=== PATIENT | male | born 1955 | race Caucasian/White ===

== ENCOUNTER 2020-04-13 10:14 | Inpatient (IN) | payer OTHER ==
[~2020-04-13] VITALS: Ht 185.4 cm; Wt 79.4 kg
[~2020-04-13 10:14] MED LIST: Acetaminophen 500mg (ES) tab ORAL PRN; DiphenhydrAMINE 50mg/ml Inj IV PRN; Hydrocortisone 100mg Inj IV PRN
--- NOTE | 2020-04-13 14:18 | History & Physical ---
History and Physical History & Physicial Full H&P dictated 64 yo with well-controlled HIV infection admitted electively for participation in [id number]. He feels well today and has no new complaints. PE: wnwd male NAD T 97.5 P 77 BP 125/71 R 16 HEENT: nc/at Neck: supple Lungs: clear Cor: reg no murmur Abd: soft, NT, no HSM Ext: no c/c/e Neuro: non-focal A: 1) HIV, well controlled on Triumeq 2) anxiety/depression 3) hyperlipidemia 4) hypogonadism 5) diverticulosis 6) BPH 7) anemia 8) participation in clinical trial. P: 1) manage per protocol. Pt has freely given his informed consent, and we will anticipate IP dosing tomorrow morning. All questions offered were addressed. Kj Zaidi MD Apr 13, 2020 14:18
--- NOTE | 2020-04-13 14:45 | History and Physical Report ---
DATE OF ADMISSION: 04/13/2020 CHIEF COMPLAINT: The patient is electively admitted for participation in [employer] clinical trial, [id number]. HISTORY OF PRESENT ILLNESS: The patient is a 64-year-old man followed by Dr. Kj Leija in my office for HIV infection. He was diagnosed in the year 1999. His radha was unknown, but was reportedly not low. The patient has a significant history of depression, anxiety, and panic attacks for which he sees psychiatrist, Dr. Tim Bravo. The patient is now electively admitted for participation in the above related clinical trial. PAST MEDICAL HISTORY: In addition to his HIV infection and his psychiatric issues, the patient has a history of benign prostatic hyperplasia as well as dysuria. The patient also has a history of diverticulosis and colon polyps. There is also history of hyperlipidemia. ALLERGIES: Cialis causes fatigue. Viagra causes a headache. MEDICATIONS: As an outpatient included Ativan 1 mg at bedtime twice a day as needed, Vraylar 1.5 mg capsules daily, Triumeq 1 tablet daily, Pristiq 100 mg daily, Dutasteride-tamsulosin 0.5/0.4 mg capsules one a day, iron sulfate 325 mg twice a day, Myrbetriq 50 mg once a day, and aripiprazole, dose unknown for anxiety. FAMILY HISTORY: Noncontributory. SOCIAL HISTORY: The patient does not smoke or use intravenous drugs. There is no history of recent travel outside of [place]. REVIEW OF SYSTEMS: Denies fever or sweats. Denies cough, shortness of breath, or dyspnea on exertion. Denies nausea, vomiting, or diarrhea. Denies dysuria. The patient has frequent urination at night, however. The patient denies headache or altered mental status. PHYSICAL EXAMINATION: GENERAL: Revealed a well-nourished and well-developed male, in no acute distress. He was alert and oriented x4 and cooperative. VITAL SIGNS: Pending. HEENT: Normocephalic and atraumatic. Pupils are equal, round, and reactive. Oropharynx was without thrush or leukoplakia. NECK: Supple. No cervical or axillary adenopathy. LUNGS: Clear to auscultation. HEART: Regular rhythm. ABDOMEN: Soft and nontender. No hepatosplenomegaly. EXTREMITIES: Without cyanosis, clubbing, or edema. NEUROLOGIC: Grossly nonfocal for motor or sensory defects. IMPRESSION: 1. HIV infection, well controlled on Triumeq. 2. Anxiety and depression. 3. Diverticulosis. 4. Hyperlipidemia. 5. Nocturia. DISCUSSION: The patient is a pleasant 64-year-old man who is now electively admitted for participation in a clinical trial. He will be dosed with investigational product tomorrow morning and observed over the next three nights. The patient was given an opportunity to verbalize questions and at this time he wishes to proceed with his participation. PLAN: Manage per protocol. Kj Zaidi M.D. DR: KIMBERLEY JOB#: [id number] CC: Kj Zaidi M.D.; [address] [place] [address], [address]; [place] [address]; Fax#: [phone] [facility]
[2020-04-13 16:00] VITALS: BP 129/78
[2020-04-13 16:07] LABS: BASOPHILS % (AUTO) 0.6 % (0.0-2.0); EOSINOPHILS % (AUTO) 2.1 % (0.0-3.0); HEMATOCRIT 38.4 % (42.0-52.0); HEMOGLOBIN 13.1 G/DL (14.2-18.0); LYMPHOCYTES % (AUTO) 23.7 % (20.0-45.0); MEAN CORPUSCULAR VOLUME 101 FL (80-99); MONOCYTES % (AUTO) 6.5 % (1.0-10.0); NEUTROPHILS % (AUTO) 67.2 % (45.0-75.0); PLATELET COUNT 181 K/UL (150-450); RED CELL DISTRIBUTION WIDTH 11.6 % (11.6-14.8); WHITE BLOOD COUNT 8.9 K/UL (4.8-10.8)
[2020-04-13 20:00] VITALS: BP 130/82
[2020-04-13] MEDS: MYRBETRIQ 50 MG ORAL SCH (20:36)
[2020-04-13] MEDS: FERROUS SULFATE 325 MG ORAL SCH (20:36)
[2020-04-13] MEDS: TAMSULOSIN ORAL SCH (20:37)
[2020-04-13] MEDS: DUTASTERIDE ORAL SCH (20:37)
[2020-04-13] MEDS: TRIUMEQ ORAL SCH (20:37)
[2020-04-13] MEDS: VRAYLAR 1.5 MG ORAL SCH (20:39)
[2020-04-13] MEDS ORDERED: LORazepam 1mg tab ORAL SCH ×2 (21:00)
[2020-04-14 08:00] VITALS: BP 135/85
[2020-04-14] MEDS ORDERED: [UNRECOGNIZED DRUG - REMARK] ORAL SCH (08:00)
[2020-04-14] MEDS: LORazepam 1mg tab ORAL SCH ×2 (11:24→21:07)
[2020-04-14] MEDS: FERROUS SULFATE 325 MG ORAL SCH ×2 (11:24→21:06)
[2020-04-14 12:00] VITALS: BP 136/86
[2020-04-14] MEDS: PRISTIQ 100 MG ORAL SCH (14:13)
--- NOTE | 2020-04-14 14:56 | General Progress Note ---
Progress Note Progress Note S: pt doing well, no new complaints. Tolerated IP well (PO) this AM O: VSS Afebrile HEENT: nc/at Neck: supple Lungs: clear Cor: reg Abd: soft, NT Ext: no c/c/e Labs Test 04/13/20 15:00 White Blood Count 8.9 K/UL (4.8-10.8) Red Blood Count 3.80 M/UL (4.70-6.10) Hemoglobin 13.1 G/DL (14.2-18.0) Hematocrit 38.4 % (42.0-52.0) Mean Corpuscular Volume 101 FL (80-99) Mean Corpuscular Hemoglobin 34.5 PG (27.0-31.0) Mean Corpuscular Hemoglobin Concent 34.2 G/DL (32.0-36.0) Red Cell Distribution Width 11.6 % (11.6-14.8) Platelet Count 181 K/UL (150-450) Mean Platelet Volume 7.3 FL (6.5-10.1) Neutrophils (%) (Auto) 67.2 % (45.0-75.0) Lymphocytes (%) (Auto) 23.7 % (20.0-45.0) Monocytes (%) (Auto) 6.5 % (1.0-10.0) Eosinophils (%) (Auto) 2.1 % (0.0-3.0) Basophils (%) (Auto) 0.6 % (0.0-2.0) A: 1) participation in clinical trial. Patient wishes to continue. 2) HIV infection, well controlled. P: 1) continue to manage per protocol 2) anticipate DC in AM 115 if clinically stable Kj Zaidi MD Apr 14, 2020 14:56
[2020-04-14 16:00] VITALS: BP 117/75
[2020-04-14] MEDS: TAMSULOSIN ORAL SCH (21:05)
[2020-04-14] MEDS: TRIUMEQ ORAL SCH (21:05)
[2020-04-14] MEDS: DUTASTERIDE ORAL SCH (21:05)
[2020-04-14] MEDS: MYRBETRIQ 50 MG ORAL SCH (21:06)
[2020-04-14] MEDS: VRAYLAR 1.5 MG ORAL SCH (21:06)
[2020-04-14] MEDS: Zolpidem 5mg tab ORAL PRN (22:07)
[2020-04-15 02:45] VITALS: BP 127/81
[2020-04-15 08:00] VITALS: BP 111/86
--- NOTE | 2020-04-15 08:00 | General Progress Note ---
Progress Note Progress Note S: pt feels well, offers no new complaints this morning O: VSS, Afebrile HEENT: nc/at Neck: supple Lungs: clear to a/ Cor: reg no murmur Abd: soft, NT Ext: no c/c/e Labs Test 04/13/20 15:00 White Blood Count 8.9 K/UL (4.8-10.8) Red Blood Count 3.80 M/UL (4.70-6.10) Hemoglobin 13.1 G/DL (14.2-18.0) Hematocrit 38.4 % (42.0-52.0) Mean Corpuscular Volume 101 FL (80-99) Mean Corpuscular Hemoglobin 34.5 PG (27.0-31.0) Mean Corpuscular Hemoglobin Concent 34.2 G/DL (32.0-36.0) Red Cell Distribution Width 11.6 % (11.6-14.8) Platelet Count 181 K/UL (150-450) Mean Platelet Volume 7.3 FL (6.5-10.1) Neutrophils (%) (Auto) 67.2 % (45.0-75.0) Lymphocytes (%) (Auto) 23.7 % (20.0-45.0) Monocytes (%) (Auto) 6.5 % (1.0-10.0) Eosinophils (%) (Auto) 2.1 % (0.0-3.0) Basophils (%) (Auto) 0.6 % (0.0-2.0) A: 1) participation in clinical trial. Pt tolerated IP yesterday w/o AEs observed 2) HIV infection, well-controlled P: 1) continue management per protocol 2) anticipate d/c in AM tomorrow if stable Kj Zaidi MD Apr 15, 2020 08:00
[2020-04-15 09:16] LABS: BASOPHILS % (AUTO) 0.9 % (0.0-2.0); EOSINOPHILS % (AUTO) 1.9 % (0.0-3.0); HEMATOCRIT 41.1 % (42.0-52.0); HEMOGLOBIN 13.8 G/DL (14.2-18.0); LYMPHOCYTES % (AUTO) 26.7 % (20.0-45.0); MEAN CORPUSCULAR VOLUME 102 FL (80-99); MONOCYTES % (AUTO) 8.5 % (1.0-10.0); NEUTROPHILS % (AUTO) 62.1 % (45.0-75.0); PLATELET COUNT 197 K/UL (150-450); RED BLOOD COUNT 4.04 M/UL (4.70-6.10); RED CELL DISTRIBUTION WIDTH 12.4 % (11.6-14.8); WHITE BLOOD COUNT 6.4 K/UL (4.8-10.8)
[2020-04-15] MEDS: FERROUS SULFATE 325 MG ORAL SCH ×2 (09:24→20:34)
[2020-04-15] MEDS: LORazepam 1mg tab ORAL SCH ×2 (09:24→20:41)
[2020-04-15 12:00] VITALS: BP 123/82
[2020-04-15] MEDS: PRISTIQ 100 MG ORAL SCH (13:58)
[2020-04-15 16:00] VITALS: BP 125/81
[2020-04-15] MEDS: MYRBETRIQ 50 MG ORAL SCH (20:33)
[2020-04-15] MEDS: DUTASTERIDE ORAL SCH (20:34)
[2020-04-15] MEDS: VRAYLAR 1.5 MG ORAL SCH (20:34)
[2020-04-15] MEDS: TRIUMEQ ORAL SCH (20:34)
[2020-04-15] MEDS: TAMSULOSIN ORAL SCH (20:34)
[2020-04-15] MEDS ORDERED: ATIVAN1 MG ORAL (22:08)
[2020-04-15] MEDS ORDERED: Patient's Own Med ORAL ×2 (22:08)
[2020-04-16] MEDS: Zolpidem 5mg tab ORAL PRN (00:23)
[2020-04-16 04:00] VITALS: BP 112/73
[2020-04-16 09:28] LABS: BASOPHILS % (AUTO) 0.9 % (0.0-2.0); EOSINOPHILS % (AUTO) 1.8 % (0.0-3.0); HEMATOCRIT 39.3 % (42.0-52.0); HEMOGLOBIN 13.3 G/DL (14.2-18.0); MEAN CORPUSCULAR VOLUME 104 FL (80-99); MONOCYTES % (AUTO) 9.5 % (1.0-10.0); NEUTROPHILS % (AUTO) 58.8 % (45.0-75.0); PLATELET COUNT 196 K/UL (150-450); RED BLOOD COUNT 3.79 M/UL (4.70-6.10); RED CELL DISTRIBUTION WIDTH 12.3 % (11.6-14.8); WHITE BLOOD COUNT 6.6 K/UL (4.8-10.8)
--- NOTE | 2020-04-17 02:00 | Discharge Summary ---
DATE OF ADMISSION: 04/13/2020 DATE OF DISCHARGE: 04/16/2020 DISCHARGE DIAGNOSES: 1. Participation in [employer] clinical trial [id number]. 2. HIV infection, well controlled on Triumeq. 3. Anxiety and depression. 4. Diverticulosis. 5. Hyperlipidemia 6. Nocturia. HISTORY OF PRESENT ILLNESS AND HOSPITAL COURSE: The patient is a 64-year-old man who is electively admitted 3 days ago for participation in the above clinical trial. He received investigational products on the second hospital day and tolerated it well without any observed adverse events. The patient was discharged to home with follow up in the office in the next week. DISCHARGE MEDICATIONS: Triumeq one tablet daily, Pristiq 100 mg a day, Vraylar 1.5 mg a day, Dutasteride-tamsulosin 0.5/0.4 mg capsules one a day, ferrous sulfate 325 mg twice a day, Myrbetriq 50 mg once a day, and aripiprazole as needed. DISCHARGE CONDITION: Good. Kj Zaidi M.D. DR: Ness JOB#: [id number] CC:
== END 2020-04-16 08:30 | disposition home or self-care (01) | DRG 951 ==
LOC: 3E 14:49
DX: Z00.6 Encounter for examination for normal comparison and control in clinical research program (principal); B20 Human immunodeficiency virus [HIV] disease; F41.8 Other specified anxiety disorders; K57.90 Diverticulosis of intestine, part unspecified, without perforation or abscess without bleeding; N40.0 Benign prostatic hyperplasia without lower urinary tract symptoms; E78.5 Hyperlipidemia, unspecified; E29.1 Testicular hypofunction; D64.9 Anemia, unspecified; R35.1 Nocturia
CPT/HCPCS: 36415; 85025

== ENCOUNTER 2020-04-27 11:30 | Inpatient (IN) | payer OTHER ==
[~2020-04-27] VITALS: Ht 185.4 cm; Wt 82.1 kg
[~2020-04-27 11:30] MED LIST changes: +ATIVAN1 MG ORAL; +Patient's Own Med ORAL
--- NOTE | 2020-04-27 15:27 | History & Physical ---
History and Physical History & Physicial Full H&P dictated #[id number]. 64 yo male electively admitted for continued participation in [id number]. No interval problems since prior hospitalization, and he feels well. Will manage per protocol. Kj Zaidi MD Apr 27, 2020 15:27
--- NOTE | 2020-04-27 15:30 | History and Physical Report ---
DATE OF ADMISSION: 04/27/2020 CHIEF COMPLAINT: The patient is electively admitted to continue participation in [employer] clinical trial [id number]. HISTORY OF PRESENT ILLNESS: Patient is a 64-year-old man, followed by Dr. Kj Leija in my office for HIV infection. He was diagnosed approximately 20 years ago. He had an unknown radha of T-cells, but reportedly was not low. The patient has numerous other medical issues which, however have been stable. He is electively admitted now for continued participation in this clinical trial. PAST MEDICAL HISTORY: The patient has a long history of depression, anxiety, and panic attacks for which he sees his psychiatrist, Dr. Tim Bravo. The patient has a history of benign prostatic hypertrophy and dysuria. He has also history of diverticulosis, colon polyps, and hyperlipidemia. ALLERGIES: Cialis causes fatigue. Viagra causes headache. MEDICATIONS: As an outpatient include Ativan 1 mg in the morning and 2 mg at night, Vraylar 1.5 mg daily, Triumeq 1 tablet daily, Pristiq 100 mg daily, dutasteride, tamsulosin 0.5/0.4 mg capsules once a day, iron sulfate 325 mg twice a day, Myrbetriq 50 mg once a day, and aripiprazole unknown dose for anxiety. FAMILY HISTORY: Noncontributory. SOCIAL HISTORY: The patient is nonsmoker. He uses intravenous drugs. He has no history of recent travel outside [place]. REVIEW OF SYSTEMS: The patient denies fevers, chills, cough, shortness of breath. Denies nausea or vomiting. No hematuria. No headache. No altered mental status. PHYSICAL EXAMINATION: GENERAL: Revealed a well-nourished, well-developed male, in no acute distress. He is alert and oriented x4 and cooperative. VITAL SIGNS: Pending. HEENT: Normocephalic, atraumatic. PERRLA. Oropharynx had no thrush. NECK: Supple. LUNGS: Clear to auscultation. HEART: Regular rhythm. ABDOMEN: Soft, nontender. EXTREMITIES: Without cyanosis, clubbing, or edema. NEUROLOGIC: Grossly nonfocal for motor or sensory defects. IMPRESSION: 1. HIV infection, well controlled on Triumeq. 2. Anxiety, depression, panic disorder. 3. Hyperlipidemia. 4. Diverticulosis. 5. Nocturia. DISCUSSION: Patient is a pleasant 64-year-old man who is now admitted for continued participation in his clinical trial. We will plan on dosing investigational products tomorrow morning and observe him over the next 2 nights. The patient has been given an opportunity to verbalize questions. At this time, I am satisfied that he has given informed consent without any constraint and he will continue on participation of study. PLAN: Manage per protocol. Kj Zaidi M.D. DR: ENEIDA JOB#: [id number] CC: Kj Zaidi M.D.; [address] [place] [address], [address]; [place] [address]; Fax#: [phone] [facility]
[2020-04-27 15:59] LABS: BASOPHILS % (AUTO) 0.7 % (0.0-2.0); EOSINOPHILS % (AUTO) 2.3 % (0.0-3.0); HEMATOCRIT 38.1 % (42.0-52.0); HEMOGLOBIN 13.2 G/DL (14.2-18.0); LYMPHOCYTES % (AUTO) 28.2 % (20.0-45.0); MEAN CORPUSCULAR VOLUME 101 FL (80-99); MONOCYTES % (AUTO) 6.5 % (1.0-10.0); NEUTROPHILS % (AUTO) 62.3 % (45.0-75.0); PLATELET COUNT 179 K/UL (150-450); RED BLOOD COUNT 3.76 M/UL (4.70-6.10); RED CELL DISTRIBUTION WIDTH 12.2 % (11.6-14.8)
[2020-04-27 16:00] VITALS: BP 122/79
[2020-04-27 20:00] VITALS: BP 117/74
[2020-04-27] MEDS: TAMSULOSIN ORAL SCH (20:16)
[2020-04-27] MEDS: DUTASTERIDE ORAL SCH (20:16)
[2020-04-27] MEDS: VRAYLAR 1.5 MG ORAL SCH (20:17)
[2020-04-27] MEDS: FERROUS SULFATE 325 MG ORAL SCH (20:17)
[2020-04-27] MEDS: LORAZEPAM 1 MG ORAL SCH (20:17)
[2020-04-27] MEDS ORDERED: Zolpidem 5mg tab ORAL PRN (23:00)
[2020-04-28] MEDS ORDERED: [UNRECOGNIZED DRUG - OTHER] IVPB SCH (07:00)
[2020-04-28] MEDS ORDERED: [UNRECOGNIZED DRUG - REMARK] ORAL SCH (08:00)
[2020-04-28] MEDS: FERROUS SULFATE 325 MG ORAL SCH ×2 (12:25→20:12)
[2020-04-28] MEDS: DESVENLAFAXINE 100 MG ORAL SCH (12:25)
[2020-04-28] MEDS: LORAZEPAM 1 MG ORAL SCH ×2 (12:25→20:12)
--- NOTE | 2020-04-28 13:21 | General Progress Note ---
Progress Note Progress Note S: pt doing well, no new complaints. Tolerated IP administration this morning w/o any AEs noted O: VSS, afebrile HEENT: nc/at Neck: supple Lungs: clear Cor: reg Abd: soft, NT Ext: no c/c/e Skin: no rashes Neuro: non-focal Labs Test 04/27/20 15:00 White Blood Count 9.0 K/UL (4.8-10.8) Red Blood Count 3.76 M/UL (4.70-6.10) Hemoglobin 13.2 G/DL (14.2-18.0) Hematocrit 38.1 % (42.0-52.0) Mean Corpuscular Volume 101 FL (80-99) Mean Corpuscular Hemoglobin 35.0 PG (27.0-31.0) Mean Corpuscular Hemoglobin Concent 34.5 G/DL (32.0-36.0) Red Cell Distribution Width 12.2 % (11.6-14.8) Platelet Count 179 K/UL (150-450) Mean Platelet Volume 7.7 FL (6.5-10.1) Neutrophils (%) (Auto) 62.3 % (45.0-75.0) Lymphocytes (%) (Auto) 28.2 % (20.0-45.0) Monocytes (%) (Auto) 6.5 % (1.0-10.0) Eosinophils (%) (Auto) 2.3 % (0.0-3.0) Basophils (%) (Auto) 0.7 % (0.0-2.0) A: 1) Participation in clinical trial - pt wishes to continue 2) HIV well controlled 3) depressive disorder, stable P: 1) continue to manage per protocol; anticipate d/c 04/30 if stable Kj Zaidi MD Apr 28, 2020 13:20
[2020-04-28] MEDS: TAMSULOSIN ORAL SCH (20:12)
[2020-04-28] MEDS: DUTASTERIDE ORAL SCH (20:12)
[2020-04-28] MEDS: VRAYLAR 1.5 MG ORAL SCH (20:12)
[2020-04-29 02:00] VITALS: BP 112/68
--- NOTE | 2020-04-29 08:03 | General Progress Note ---
Progress Note Progress Note S: no overnight events, pt feels well and has no complaints this AM O: VSS Afebrile HEENT: nc/at Lungs: clear a/ Cor: reg no murmurs Abd: soft, NT Ext: no c/c/e Skin: no rashes Neuro: non-focal Labs Test 04/27/20 15:00 White Blood Count 9.0 K/UL (4.8-10.8) Red Blood Count 3.76 M/UL (4.70-6.10) Hemoglobin 13.2 G/DL (14.2-18.0) Hematocrit 38.1 % (42.0-52.0) Mean Corpuscular Volume 101 FL (80-99) Mean Corpuscular Hemoglobin 35.0 PG (27.0-31.0) Mean Corpuscular Hemoglobin Concent 34.5 G/DL (32.0-36.0) Red Cell Distribution Width 12.2 % (11.6-14.8) Platelet Count 179 K/UL (150-450) Mean Platelet Volume 7.7 FL (6.5-10.1) Neutrophils (%) (Auto) 62.3 % (45.0-75.0) Lymphocytes (%) (Auto) 28.2 % (20.0-45.0) Monocytes (%) (Auto) 6.5 % (1.0-10.0) Eosinophils (%) (Auto) 2.3 % (0.0-3.0) Basophils (%) (Auto) 0.7 % (0.0-2.0) A: 1) participation in [id number] clinical trial 2) HIV infection, well controlled on ART 3) stable comorbidities P: 1) continue to manage per protocol 2) anticipate discharge in AM if stable overnight Kj Zaidi MD Apr 29, 2020 08:03
[2020-04-29 08:28] LABS: BASOPHILS % (AUTO) 0.9 % (0.0-2.0); EOSINOPHILS % (AUTO) 2.3 % (0.0-3.0); HEMATOCRIT 39.6 % (42.0-52.0); HEMOGLOBIN 13.7 G/DL (14.2-18.0); LYMPHOCYTES % (AUTO) 20.3 % (20.0-45.0); MEAN CORPUSCULAR VOLUME 103 FL (80-99); MONOCYTES % (AUTO) 9.5 % (1.0-10.0); PLATELET COUNT 154 K/UL (150-450); RED BLOOD COUNT 3.86 M/UL (4.70-6.10); RED CELL DISTRIBUTION WIDTH 12.5 % (11.6-14.8); WHITE BLOOD COUNT 4.8 K/UL (4.8-10.8)
[2020-04-29] MEDS: FERROUS SULFATE 325 MG ORAL SCH ×2 (09:02→21:00)
[2020-04-29] MEDS: DESVENLAFAXINE 100 MG ORAL SCH (09:03)
[2020-04-29] MEDS: LORAZEPAM 1 MG ORAL SCH ×2 (09:03→21:46)
[2020-04-29 12:43] LABS: CALCIUM 8.9 MG/DL (8.5-10.1); CREATININE 1.4 MG/DL (0.55-1.30); POTASSIUM 4.5 MMOL/L (3.5-5.1)
[2020-04-29] MEDS: VRAYLAR 1.5 MG ORAL SCH (21:46)
[2020-04-29] MEDS: DUTASTERIDE ORAL SCH (21:47)
[2020-04-29] MEDS: TAMSULOSIN ORAL SCH (21:47)
[2020-04-30 08:24] LABS: EOSINOPHILS % (AUTO) 1.9 % (0.0-3.0); HEMATOCRIT 40.9 % (42.0-52.0); HEMOGLOBIN 13.8 G/DL (14.2-18.0); LYMPHOCYTES % (AUTO) 35.6 % (20.0-45.0); MEAN CORPUSCULAR VOLUME 102 FL (80-99); MONOCYTES % (AUTO) 12.1 % (1.0-10.0); NEUTROPHILS % (AUTO) 49.4 % (45.0-75.0); PLATELET COUNT 166 K/UL (150-450); RED CELL DISTRIBUTION WIDTH 12.1 % (11.6-14.8); WHITE BLOOD COUNT 4.9 K/UL (4.8-10.8)
--- NOTE | 2020-05-01 01:45 | Discharge Summary ---
DATE OF ADMISSION: 04/27/2020 DATE OF DISCHARGE: 04/30/2020 DISCHARGE DIAGNOSES: 1. Elective participation in [employer] clinical trial [id number]. 2. HIV infection, well controlled on Triumeq. 3. Depression and anxiety. 4. Dysuria. HISTORY OF PRESENT ILLNESS AND HOSPITAL COURSE: The patient is a 64-year-old man participating in the above clinical trial. He received investigational products on the second hospital day and tolerated them well without any evident adverse effects noted. The patient is discharged in stable condition to home. He will be followed up in the office on Monday. STATUS AT DISCHARGE: Stable. MEDICATIONS: Ativan 1 mg in the morning and 2 mg at night, Vraylar 1.5 mg daily, Triumeq 1 tablet daily, Pristiq 100 mg daily, dutasteride-tamsulosin 0.5/0.4 mg capsules once a day, iron sulfate 325 mg twice a day, Myrbetriq 50 mg once a day, and aripiprazole for anxiety. Kj Zaidi M.D. DR: ESTUARDO JOB#: [id number] CC: Kj Zaidi M.D.; [address] [place] [address], [address]; [place] [address]; Fax#: [phone]
== END 2020-04-30 08:15 | disposition home or self-care (01) | DRG 951 ==
LOC: 3E 15:41
DX: Z00.6 Encounter for examination for normal comparison and control in clinical research program (principal); B20 Human immunodeficiency virus [HIV] disease; K57.90 Diverticulosis of intestine, part unspecified, without perforation or abscess without bleeding; F32.9 Major depressive disorder, single episode, unspecified; F41.9 Anxiety disorder, unspecified; R30.0 Dysuria
CPT/HCPCS: 36415; 80048; 85025

== ENCOUNTER 2020-05-11 13:57 | Inpatient (IN) | payer OTHER ==
[~2020-05-11] VITALS: Ht 185.4 cm; Wt 80.3 kg
[~2020-05-11 13:57] MED LIST changes: +Zolpidem 5mg tab ORAL PRN
[2020-05-11 14:50] LABS: BASOPHILS % (AUTO) 0.6 % (0.0-2.0); HEMATOCRIT 37.8 % (42.0-52.0); HEMOGLOBIN 13.1 G/DL (14.2-18.0); LYMPHOCYTES % (AUTO) 23.1 % (20.0-45.0); MEAN CORPUSCULAR VOLUME 100 FL (80-99); MONOCYTES % (AUTO) 7.1 % (1.0-10.0); NEUTROPHILS % (AUTO) 67.2 % (45.0-75.0); PLATELET COUNT 187 K/UL (150-450); RED BLOOD COUNT 3.77 M/UL (4.70-6.10); WHITE BLOOD COUNT 10.6 K/UL (4.8-10.8)
[2020-05-11 15:00] VITALS: BP 117/73
--- NOTE | 2020-05-11 15:14 | History & Physical ---
History and Physical History & Physicial Full H&P dictated #[id number]. 64 yo male electively admitted for continued participation in [id number]. No interval problems since prior hospitalization, and he feels well. Will manage per protocol. Kj Zaidi MD May 11, 2020 15:14
[2020-05-11 16:00] VITALS: BP 120/77
--- NOTE | 2020-05-11 16:14 | History and Physical Report ---
DATE OF ADMISSION: 05/11/2020 CHIEF COMPLAINT: The patient is electively admitted for continued participation in [employer] clinical trial [id number]. HISTORY OF PRESENT ILLNESS: Patient is a 64-year-old man, followed in our office for HIV infection, which has been well controlled. PAST MEDICAL HISTORY: The patient has a history of benign prostatic hypertrophy and dysuria as well as diverticulosis, colon polyps, and hyperlipidemia. He also has a history of depression and anxiety for which he sees a psychiatrist, Dr. Bravo. The patient has done well during the current study without any new complaints above. ALLERGIES: Cialis causes fatigue and Viagra causes headache. OUTPATIENT MEDICATIONS: Ativan 1 mg in the morning and 2 mg at night, Vraylar 1.5 mg daily, Triumeq 1 tablet daily, Pristiq 100 mg daily, dutasteride/tamsulosin 0.5/0.4 mg once a day, iron sulfate 325 mg twice a day, Myrbetriq 50 mg a day, and aripiprazole unknown dose for anxiety. FAMILY HISTORY: Noncontributory. SOCIAL HISTORY: Patient is a nonsmoker. He does not use intravenous drugs. He has no history of recent travel outside of [place]. REVIEW OF SYSTEMS: The patient denies fevers, chills, cough, shortness of breath, dyspnea on exertion, or chest pain. He denies nausea, vomiting, or diarrhea. There is no change in his chronic dysuria. He denies tingling, paresthesias, headaches, or altered mental status. He has had some mild itching since last week. PHYSICAL EXAMINATION: GENERAL: Revealed a well-nourished, well-developed male, in no acute distress. He is alert, oriented x4, and cooperative. VITAL SIGNS: Pending. HEENT: Normocephalic, atraumatic. Pupils equal, round, reactive. Oropharynx was without thrush or leukoplakia. NECK: Supple. LUNGS: Clear to auscultation. HEART: Regular rhythm without murmurs or gallops. ABDOMEN: Soft, nontender. No hepatosplenomegaly. EXTREMITIES: Without cyanosis, clubbing, or edema. NEUROLOGIC: Grossly nonfocal. SKIN: No rashes. IMPRESSION: 1. Participation in the above clinical trial. 2. HIV infection, well controlled, on Triumeq. 3. Anxiety, depression, panic disorder. 4. Hyperlipidemia. 5. Diverticulosis. 6. Nocturia. 7. Pruritus - likely due to dry skin DISCUSSION: Patient is a pleasant 64-year-old man, continuing his participation in this clinical trial. He wishes to proceed and in my opinion has given freely his consent without coercion to do this. We will administer investigational product tomorrow and follow him in the next 2 nights per protocol. PLAN: Manage per protocol. Kj Zaidi M.D. DR: ENEIDA JOB#: [id number] CC: Kj Zaidi M.D.; [address] [place] [address], [address]; [place] [address]; Fax#: [phone] [facility]
[2020-05-11 20:00] VITALS: BP 118/71
[2020-05-11] MEDS: VRAYLAR 1.5 MG ORAL SCH (20:09)
[2020-05-11] MEDS: TAMSULOSIN ORAL SCH (20:09)
[2020-05-11] MEDS: DUTASTERIDE ORAL SCH (20:09)
[2020-05-11] MEDS: FERROUS SULFATE 325 MG ORAL SCH (20:10)
[2020-05-11] MEDS: DESVENLAFAXINE 100 MG ORAL SCH (20:10)
[2020-05-11] MEDS: LORAZEPAM 1 MG ORAL SCH (20:18)
[2020-05-12] MEDS ORDERED: [UNRECOGNIZED DRUG - OTHER] IVPB SCH (07:00)
[2020-05-12] MEDS ORDERED: [UNRECOGNIZED DRUG - REMARK] ORAL SCH (08:00)
[2020-05-12] MEDS ORDERED: DESVENLAFAXINE100 MG ORAL (09:59)
[2020-05-12] MEDS ORDERED: MYRBETRIQ50 MG PO (09:59)
[2020-05-12] MEDS ORDERED: JALYN 0.5-0.41 EACH PO (09:59)
[2020-05-12] MEDS ORDERED: TRIUMEQ 600-501 EACH PO (09:59)
[2020-05-12] MEDS ORDERED: VRAYLAR 1.5 MG PO (09:59)
[2020-05-12] MEDS ORDERED: FERROUS SULFAT325 MG ORAL (09:59)
[2020-05-12] MEDS ORDERED: ATIVAN1 MG ORAL ×2 (09:59)
[2020-05-12] MEDS: LORAZEPAM 1 MG ORAL SCH ×2 (12:25→20:14)
[2020-05-12] MEDS: FERROUS SULFATE 325 MG ORAL SCH ×2 (12:26→20:07)
[2020-05-12] MEDS ORDERED: DESVENLAFAXINE 100 MG ORAL SCH (12:45)
--- NOTE | 2020-05-12 15:47 | General Progress Note ---
Progress Note Progress Note S: pt doing well, tolerated IP this AM w/o any observed AEs O: VSS. Afebrile HEENT: nc/at Neck: supple Lungs: clear Cor: reg no murmur Abd: soft, NT Skin: no rash Ext: no c/c/e Neuro: non-focal Labs Test 05/11/20 13:40 White Blood Count 10.6 K/UL (4.8-10.8) Red Blood Count 3.77 M/UL (4.70-6.10) Hemoglobin 13.1 G/DL (14.2-18.0) Hematocrit 37.8 % (42.0-52.0) Mean Corpuscular Volume 100 FL (80-99) Mean Corpuscular Hemoglobin 34.8 PG (27.0-31.0) Mean Corpuscular Hemoglobin Concent 34.6 G/DL (32.0-36.0) Red Cell Distribution Width 12.0 % (11.6-14.8) Platelet Count 187 K/UL (150-450) Mean Platelet Volume 8.1 FL (6.5-10.1) Neutrophils (%) (Auto) 67.2 % (45.0-75.0) Lymphocytes (%) (Auto) 23.1 % (20.0-45.0) Monocytes (%) (Auto) 7.1 % (1.0-10.0) Eosinophils (%) (Auto) 2.0 % (0.0-3.0) Basophils (%) (Auto) 0.6 % (0.0-2.0) A: 1) HIV, well controlled 2) Hypertension 3) Hyperlipidemia 4) Major depressive disorder/anxiety 5) Glucose intolerance Pt doing well on clinical trial. All questions offered were addressed and he wishes to continue participation P: continue management per protocol; anticipate discharge Thurs AM if stable Kj Zaidi MD May 12, 2020 15:46
[2020-05-12] MEDS: DUTASTERIDE ORAL SCH (20:07)
[2020-05-12] MEDS: VRAYLAR 1.5 MG ORAL SCH (20:07)
[2020-05-12] MEDS: TAMSULOSIN ORAL SCH (20:07)
[2020-05-13 02:00] VITALS: BP 107/65
[2020-05-13 08:23] LABS: BASOPHILS % (AUTO) 0.9 % (0.0-2.0); EOSINOPHILS % (AUTO) 2.3 % (0.0-3.0); HEMATOCRIT 36.3 % (42.0-52.0); HEMOGLOBIN 13.1 G/DL (14.2-18.0); LYMPHOCYTES % (AUTO) 21.3 % (20.0-45.0); MEAN CORPUSCULAR VOLUME 97 FL (80-99); MONOCYTES % (AUTO) 11.3 % (1.0-10.0); NEUTROPHILS % (AUTO) 64.2 % (45.0-75.0); PLATELET COUNT 148 K/UL (150-450); RED BLOOD COUNT 3.73 M/UL (4.70-6.10); RED CELL DISTRIBUTION WIDTH 12.7 % (11.6-14.8); WHITE BLOOD COUNT 5.5 K/UL (4.8-10.8)
[2020-05-13] MEDS: DESVENLAFAXINE 100 MG ORAL SCH (09:00)
[2020-05-13] MEDS: FERROUS SULFATE 325 MG ORAL SCH ×2 (09:01→20:07)
[2020-05-13] MEDS: LORAZEPAM 1 MG ORAL SCH ×2 (09:01→20:07)
--- NOTE | 2020-05-13 11:53 | General Progress Note ---
Progress Note Progress Note S: pt doing well, no new complaints O: VSS Afebrile HEENT: nc/at Neck: supple Lungs: clear Cor: reg Abd: soft, NT Ext: no c/c/e Skin: no rashes Neuro: non-focal Labs Test 05/11/20 13:40 05/13/20 07:00 White Blood Count 10.6 K/UL (4.8-10.8) 5.5 K/UL (4.8-10.8) Red Blood Count 3.77 M/UL (4.70-6.10) 3.73 M/UL (4.70-6.10) Hemoglobin 13.1 G/DL (14.2-18.0) 13.1 G/DL (14.2-18.0) Hematocrit 37.8 % (42.0-52.0) 36.3 % (42.0-52.0) Mean Corpuscular Volume 100 FL (80-99) 97 FL (80-99) Mean Corpuscular Hemoglobin 34.8 PG (27.0-31.0) 35.1 PG (27.0-31.0) Mean Corpuscular Hemoglobin Concent 34.6 G/DL (32.0-36.0) 36.1 G/DL (32.0-36.0) Red Cell Distribution Width 12.0 % (11.6-14.8) 12.7 % (11.6-14.8) Platelet Count 187 K/UL (150-450) 148 K/UL (150-450) Mean Platelet Volume 8.1 FL (6.5-10.1) 8.1 FL (6.5-10.1) Neutrophils (%) (Auto) 67.2 % (45.0-75.0) 64.2 % (45.0-75.0) Lymphocytes (%) (Auto) 23.1 % (20.0-45.0) 21.3 % (20.0-45.0) Monocytes (%) (Auto) 7.1 % (1.0-10.0) 11.3 % (1.0-10.0) Eosinophils (%) (Auto) 2.0 % (0.0-3.0) 2.3 % (0.0-3.0) Basophils (%) (Auto) 0.6 % (0.0-2.0) 0.9 % (0.0-2.0) A: 1) HIV, well controlled 2) hyperlipidemia 3) hypertension 4) depression/anxiety 5) participation in clinical trial Note plt count just below minimum normal, will follow. P: manage per protocol; anticipate discharge tomorrow AM if stable Kj Zaidi MD May 13, 2020 11:53
[2020-05-13] MEDS: VRAYLAR 1.5 MG ORAL SCH (20:06)
[2020-05-13] MEDS: TAMSULOSIN ORAL SCH (20:07)
[2020-05-13] MEDS: DUTASTERIDE ORAL SCH (20:07)
[2020-05-14 08:40] LABS: BASOPHILS % (AUTO) 0.9 % (0.0-2.0); EOSINOPHILS % (AUTO) 2.4 % (0.0-3.0); HEMATOCRIT 36.5 % (42.0-52.0); HEMOGLOBIN 13.5 G/DL (14.2-18.0); LYMPHOCYTES % (AUTO) 32.8 % (20.0-45.0); MEAN CORPUSCULAR VOLUME 96 FL (80-99); MONOCYTES % (AUTO) 10.5 % (1.0-10.0); NEUTROPHILS % (AUTO) 53.4 % (45.0-75.0); PLATELET COUNT 162 K/UL (150-450); RED BLOOD COUNT 3.81 M/UL (4.70-6.10); RED CELL DISTRIBUTION WIDTH 12.9 % (11.6-14.8); WHITE BLOOD COUNT 5.4 K/UL (4.8-10.8)
--- NOTE | 2020-05-14 09:00 | Discharge Summary ---
DATE OF ADMISSION: 05/11/2020 DATE OF DISCHARGE: 05/14/2020 DISCHARGE DIAGNOSES: 1. Participation in [employer] clinical trial [id number]. 2. HIV infection, well controlled. 3. Major depression and anxiety, stable. 4. Diverticulosis. 5. History of colon polyps. 6. Hyperlipidemia. 7. Hypogonadism. 8. Hypertension. 9. Dysuria. HISTORY OF PRESENT ILLNESS AND HOSPITAL COURSE: The patient is a 64-year-old man, who was admitted this week for continued participation in clinical trial. He tolerated the infusion of investigational products well and has had no observed adverse events, although his platelet count was 148,000 yesterday and will be followed subsequently. The patient will be discharged home in stable condition with followup in the clinic next week. Kj Zaidi M.D. DR: MARYA JOB#: [id number] CC: Kj Zaidi M.D.; [address] [place] [address], [address]; [place] [address]; Fax#: [phone]
== END 2020-05-14 07:55 | disposition home or self-care (01) | DRG 951 ==
LOC: 3E 13:57
DX: Z00.6 Encounter for examination for normal comparison and control in clinical research program (principal); B20 Human immunodeficiency virus [HIV] disease; E78.5 Hyperlipidemia, unspecified; K57.90 Diverticulosis of intestine, part unspecified, without perforation or abscess without bleeding; F41.8 Other specified anxiety disorders; Z86.010 Personal history of colon polyps; I10 Essential (primary) hypertension; R30.0 Dysuria
CPT/HCPCS: 36415; 85025

== ENCOUNTER 2020-05-25 09:26 | Inpatient (IN) | payer OTHER ==
[~2020-05-25] VITALS: Ht 185.4 cm; Wt 84.4 kg
[~2020-05-25 09:26] MED LIST changes: +DESVENLAFAXINE100 MG ORAL; +FERROUS SULFAT325 MG ORAL; +JALYN 0.5-0.41 EACH PO; +MYRBETRIQ50 MG PO; +TRIUMEQ 600-501 EACH PO; +VRAYLAR 1.5 MG PO; -Zolpidem 5mg tab ORAL PRN
--- NOTE | 2020-05-25 11:15 | History and Physical Report ---
DATE OF ADMISSION: 05/25/2020 CHIEF COMPLAINT: The patient is electively admitted for continued participation in [employer] clinical trial [id number]. HISTORY OF PRESENT ILLNESS: The patient is a 64-year-old followed by Dr. Kj Leija for HIV infection which has been well controlled. He was diagnosed approximately 20 years ago and has been successfully treated on anti-retroviral therapy, most recently Triumeq. The patient has numerous other medical issues outlined below. He is now electively admitted for continued participation in this clinical trial. He will receive fourth of projected five cycles of investigational product tomorrow. PAST MEDICAL HISTORY: The patient had the usual childhood diseases. There is a significant history of psychiatric disease, mainly depression and anxiety. He is under psychiatric care at this point and is stable. There is a history of diverticulosis, colon polyps, hyperlipidemia, and benign prostatic hypertrophy. ALLERGIES: Cialis causes fatigue and Viagra causes headache. MEDICATIONS: Medications as an outpatient include Ativan 1 mg in the morning and 2 mg at night, Vraylar 1.5 mg daily, Triumeq one tablet daily, Pristiq 100 mg daily, dutasteride/tamsulosin 0.5/0.4 mg capsules once a day, iron sulfate 325 mg twice a day, Myrbetriq 50 mg once a day, and aripiprazole as needed for anxiety. FAMILY HISTORY: Noncontributory. SOCIAL HISTORY: The patient is nonsmoker. He does not use intravenous drugs. There is no history of recent travel outside of [place]. REVIEW OF SYSTEMS: The patient denies fevers, chills, cough, shortness of breath. He denies chest pain. He denies dyspnea on exertion. He denies nausea, vomiting, or diarrhea. He has not had headaches or altered mental status. He denies dysuria or hematuria. PHYSICAL EXAMINATION: GENERAL: Revealed a well-nourished, well-developed male, in no acute distress. He is alert, oriented x4, and cooperative. VITAL SIGNS: Pending. HEENT: Normocephalic and atraumatic. NECK: Supple. No cervical or axillary adenopathy. LUNGS: Clear to auscultation. HEART: Regular rhythm without murmurs or gallops. ABDOMEN: Soft, nontender. No organomegaly. EXTREMITIES: Without cyanosis, clubbing, or edema. NEUROLOGIC: Grossly nonfocal. SKIN: No rashes visible. IMPRESSION: 1. Participation in [employer] clinical trial [id number]. 2. HIV infection, well controlled. 3. Depression and anxiety. 4. History of diverticulosis. 5. Colon polyps. 6. Hyperlipidemia. 7. Benign prostatic hypertrophy. DISCUSSION: The patient is a pleasant 64-year-old man electively admitted for continued participation in clinical trial. I am satisfied. He has given his consent without coercion to continue. We discussed risks and benefits in detail. PLAN: 1. Manage per protocol. 2. We will anticipate dosing investigational product tomorrow morning and follow him closely thereafter. Kj Zaidi M.D. DR: Ness JOB#: [id number] CC: Kj Zaidi M.D.; [address] [place] [address], [address]; [place] [address]; Fax#: [phone]
[2020-05-25 13:30] VITALS: BP 127/78
--- NOTE | 2020-05-25 13:30 | NUR ---
NURSE NOTES: Patient was admitted to room 304-1 ambulatory for clinical trial. Pt a/o x 4, in stable condition. Unit orientation was given shortly. Provided call light. Bed in lowest position, will continue to monitor.
[2020-05-25 15:06] LABS: BASOPHILS % (AUTO) 0.8 % (0.0-2.0); EOSINOPHILS % (AUTO) 1.8 % (0.0-3.0); HEMATOCRIT 35.7 % (42.0-52.0); HEMOGLOBIN 12.9 G/DL (14.2-18.0); LYMPHOCYTES % (AUTO) 34.8 % (20.0-45.0); MEAN CORPUSCULAR VOLUME 98 FL (80-99); MONOCYTES % (AUTO) 10.7 % (1.0-10.0); PLATELET COUNT 178 K/UL (150-450); RED BLOOD COUNT 3.65 M/UL (4.70-6.10); RED CELL DISTRIBUTION WIDTH 12.4 % (11.6-14.8); WHITE BLOOD COUNT 6.7 K/UL (4.8-10.8)
[2020-05-25 16:00] VITALS: BP 127/78
--- NOTE | 2020-05-25 18:52 | NUR ---
NURSE HAND-OFF: Important Events on Shift:Admission for clinical trial Patient Status: stable Diet: regular (no caffeine, no chocolate) Pending Orders: n/a Pending Results/Labs:n/a Pending MD notification:n/a Latest Vital Signs: Temperature , Pulse , B/P /, Respiratory Rate , O2 SAT , , O2 Flow Rate . Vital Sign Comment: Latest Toro Fall Score: 15 Fall Risk: Low Risk Safety Measures: Call light Within Reach, Bed Alarm Zone 1, Side Rails Side Rails x1, Bed position . Fall Precautions: Report given to DALLAS Savage.
--- NOTE | 2020-05-25 19:30 | NUR ---
NURSE NOTES: Receive a report from DALLAS Ivy. Round is done. Pt is awake and alert. No acute distress noted. Noted itching. Will provide prn Benadryl po as ordered. Call light within reach. Will continue to monitor.
[2020-05-25 20:00] VITALS: BP 134/73
[2020-05-25] MEDS: FERROUS SULFATE 325 MG ORAL SCH (20:20)
[2020-05-25] MEDS: ATIVAN 1 MG ORAL SCH (20:20)
[2020-05-25] MEDS: VRAYLAR 3 MG ORAL SCH (20:21)
[2020-05-25] MEDS: TAMSULOSIN ORAL SCH (20:21)
[2020-05-25] MEDS: DUTASTERIDE ORAL SCH (20:21)
--- NOTE | 2020-05-25 20:30 | NUR ---
NURSE NOTES: Inform pt of tomorrow schedule and NPO time. Will continue to monitor.
[2020-05-26] VITALS: BP 124/70
[2020-05-26] MEDS ORDERED: [UNRECOGNIZED DRUG - OTHER] IVPB SCH (07:00)
--- NOTE | 2020-05-26 07:00 | NUR ---
NURSE NOTES: Medication started @ 7am via 20G AC. No distress noted. Will continue to monitor.
--- NOTE | 2020-05-26 07:30 | NUR ---
NURSE HAND-OFF: Important Events on Shift: Clinical trial, infusion started @ 7am Patient Status: [stable] Diet: [npo---> regular] Pending Orders: [] Pending Results/Labs:[] Pending MD notification:[] Latest Vital Signs: Temperature 97.4 , Pulse 59 , B/P 124 /70 , Respiratory Rate 18 , O2 SAT 98 , Room Air, O2 Flow Rate . Vital Sign Comment: [] Latest Toro Fall Score: 15 Fall Risk: Low Risk Safety Measures: Call light Within Reach, Bed Alarm Zone 1, Side Rails Side Rails x2, Bed position Low and Locked. Fall Precautions: Patient Fall Education Report given to DALLAS Castillo. Round is made.
[2020-05-26] MEDS ORDERED: [UNRECOGNIZED DRUG - REMARK] ORAL SCH (08:00)
--- NOTE | 2020-05-26 08:00 | NUR ---
NURSE NOTES: Received report from Leóno RN, pt a/a/o x4 laying in bed with no signs of distress or other issues at this time. dr. Zaidi administrated clinical trial medication. call light within reach, bed in lowest position, side rales up x2. I will f/u as needed.
[2020-05-26 12:00] VITALS: BP 122/71
[2020-05-26] MEDS: FERROUS SULFATE 325 MG ORAL SCH ×3 (13:02→21:10)
[2020-05-26] MEDS: DESVENLAFAXINE 100 MG ORAL SCH ×2 (13:02→20:22)
[2020-05-26] MEDS: ATIVAN 1 MG ORAL SCH ×2 (13:55→20:20)
--- NOTE | 2020-05-26 14:58 | General Progress Note ---
Progress Note Progress Note S: Patient doing well, no new c/o. Tolerated IPs this AM without observed AEs O: VSS Afebrile HEENT: nc/at Neck: supple Lungs: clear Cor: reg Abd: soft, NT Ext: no c/c/e Skin: no rashes Neuro: non-focal Labs Test 05/25/20 12:49 White Blood Count 6.7 K/UL (4.8-10.8) Red Blood Count 3.65 M/UL (4.70-6.10) Hemoglobin 12.9 G/DL (14.2-18.0) Hematocrit 35.7 % (42.0-52.0) Mean Corpuscular Volume 98 FL (80-99) Mean Corpuscular Hemoglobin 35.3 PG (27.0-31.0) Mean Corpuscular Hemoglobin Concent 36.1 G/DL (32.0-36.0) Red Cell Distribution Width 12.4 % (11.6-14.8) Platelet Count 178 K/UL (150-450) Mean Platelet Volume 7.3 FL (6.5-10.1) Neutrophils (%) (Auto) 52.0 % (45.0-75.0) Lymphocytes (%) (Auto) 34.8 % (20.0-45.0) Monocytes (%) (Auto) 10.7 % (1.0-10.0) Eosinophils (%) (Auto) 1.8 % (0.0-3.0) Basophils (%) (Auto) 0.8 % (0.0-2.0) A: 1) HIV, well-controlled 2) clinical trial participation; pt wishes to continue 3) hyperlipidemia 4) BPH 5) h/o depression, anxiety P: 1) manage per protocol 2) anticipate d/c 05/28 Kj Zaidi MD May 26, 2020 14:58
--- NOTE | 2020-05-26 19:17 | NUR ---
NURSE HAND-OFF: Important Events on Shift: clinical trial medication was given Patient Status: stable/ full code Diet: regular, no chocolate no caffeine. Pending Orders: Pending Results/Labs: CBC at 06:00 Pending MD notification:[] Latest Vital Signs: Temperature 97.8 , Pulse 69 , B/P 122 /71 , Respiratory Rate 18 , O2 SAT 100 , Room Air, O2 Flow Rate . Vital Sign Comment: stable Latest Toro Fall Score: 15 Fall Risk: Low Risk Safety Measures: Call light Within Reach, Bed Alarm Zone 1, Side Rails Side Rails x2, Bed position Low and Locked. Fall Precautions: pt is ambulatory with steady gait Patient Fall Education Report given to Hussein RN, pt in stable condition. pt laying in bed with no signs of distress or other issues at this time.
--- NOTE | 2020-05-26 19:30 | NUR ---
NURSE NOTES: Receive a report from DALLAS Castillo.
[2020-05-26] MEDS: VRAYLAR 3 MG ORAL SCH (20:21)
[2020-05-26] MEDS: DUTASTERIDE ORAL SCH (20:21)
[2020-05-26] MEDS: TAMSULOSIN ORAL SCH (20:21)
--- NOTE | 2020-05-26 20:30 | NUR ---
NURSE NOTES: Pt is awake and alert. No acute distress noted. Renee pain but still noted itching in general. Provide prn Benadryl 1c po as ordered. Inform pt of taking VSS @ 2am. Will continue to monitor.
[2020-05-27 02:00] VITALS: BP 115/74
--- NOTE | 2020-05-27 06:40 | NUR ---
NURSE HAND-OFF: Important Events on Shift: no acute distress Patient Status: [stable] Diet: [regular] Pending Orders: [] Pending Results/Labs:[] Pending MD notification:[] Latest Vital Signs: Temperature 97.7 , Pulse 74 , B/P 115 /74 , Respiratory Rate 18 , O2 SAT 97 , Room Air, O2 Flow Rate . Vital Sign Comment: [] Latest Toro Fall Score: 15 Fall Risk: Low Risk Safety Measures: Call light Within Reach, Bed Alarm Zone 1, Side Rails Side Rails x2, Bed position Low and Locked. Fall Precautions: Patient Fall Education
--- NOTE | 2020-05-27 07:30 | NUR ---
NURSE NOTES: Received report from Gho RN. Patient is awake, oriented, in no distress. Updated on plan of care. Bed low and locked, call light within reach.
--- NOTE | 2020-05-27 07:30 | NUR ---
HAND-OFF: Report given to DALLAS Bridges. Round is made.
[2020-05-27] MEDS: FERROUS SULFATE 325 MG ORAL SCH ×2 (08:12→20:40)
[2020-05-27 08:18] LABS: BASOPHILS % (AUTO) 0.9 % (0.0-2.0); EOSINOPHILS % (AUTO) 2.3 % (0.0-3.0); HEMATOCRIT 35.4 % (42.0-52.0); HEMOGLOBIN 12.9 G/DL (14.2-18.0); LYMPHOCYTES % (AUTO) 33.4 % (20.0-45.0); MEAN CORPUSCULAR VOLUME 97 FL (80-99); MONOCYTES % (AUTO) 10.3 % (1.0-10.0); NEUTROPHILS % (AUTO) 53.1 % (45.0-75.0); PLATELET COUNT 154 K/UL (150-450); RED BLOOD COUNT 3.63 M/UL (4.70-6.10); RED CELL DISTRIBUTION WIDTH 12.3 % (11.6-14.8); WHITE BLOOD COUNT 5.5 K/UL (4.8-10.8)
[2020-05-27] MEDS: ATIVAN 1 MG ORAL SCH ×2 (08:24→20:39)
[2020-05-27] MEDS ORDERED: DESVENLAFAXINE ORAL SCH (12:00)
--- NOTE | 2020-05-27 15:12 | General Progress Note ---
Progress Note Progress Note S: pt feels well, no new complaints O: VSS Afebrile HEENT: nc/at Neck: supple Lungs: clear a/ Cor: reg no murmurs Abd: soft, NT Ext: no c/c/e Neuro: non-focal Skin: no rashes Labs Test 05/25/20 12:49 05/27/20 07:00 White Blood Count 6.7 K/UL (4.8-10.8) 5.5 K/UL (4.8-10.8) Red Blood Count 3.65 M/UL (4.70-6.10) 3.63 M/UL (4.70-6.10) Hemoglobin 12.9 G/DL (14.2-18.0) 12.9 G/DL (14.2-18.0) Hematocrit 35.7 % (42.0-52.0) 35.4 % (42.0-52.0) Mean Corpuscular Volume 98 FL (80-99) 97 FL (80-99) Mean Corpuscular Hemoglobin 35.3 PG (27.0-31.0) 35.4 PG (27.0-31.0) Mean Corpuscular Hemoglobin Concent 36.1 G/DL (32.0-36.0) 36.4 G/DL (32.0-36.0) Red Cell Distribution Width 12.4 % (11.6-14.8) 12.3 % (11.6-14.8) Platelet Count 178 K/UL (150-450) 154 K/UL (150-450) Mean Platelet Volume 7.3 FL (6.5-10.1) 7.3 FL (6.5-10.1) Neutrophils (%) (Auto) 52.0 % (45.0-75.0) 53.1 % (45.0-75.0) Lymphocytes (%) (Auto) 34.8 % (20.0-45.0) 33.4 % (20.0-45.0) Monocytes (%) (Auto) 10.7 % (1.0-10.0) 10.3 % (1.0-10.0) Eosinophils (%) (Auto) 1.8 % (0.0-3.0) 2.3 % (0.0-3.0) Basophils (%) (Auto) 0.8 % (0.0-2.0) 0.9 % (0.0-2.0) A: 1) participation in clinical trial. Pt doing well without any AEs noted 2) HIV infection, well controlled 3) h/o depression/anxiety 4) hyperlipidemia P: 1) continue to manage per protocol 2) anticipate discharge in AM provided he is clinically stable Kj Zaidi MD May 27, 2020 15:12
--- NOTE | 2020-05-27 19:15 | NUR ---
NURSE NOTES: Receive a report from DALLAS Bridges.
--- NOTE | 2020-05-27 19:16 | NUR ---
NURSE NOTES: Report given to Gho RN. Endorsed plan of care.
--- NOTE | 2020-05-27 19:30 | NUR ---
NURSE NOTES: Pt is awake and talking on the phone without any distress. Will continue to monitor.
--- NOTE | 2020-05-27 20:30 | NUR ---
NURSE NOTES: Given prn Benadryl po for itching. Discussed plan of discharge tomorrow after lab and breakfast. Will continue to monitor.
[2020-05-27] MEDS: TAMSULOSIN ORAL SCH (20:39)
[2020-05-27] MEDS: DUTASTERIDE ORAL SCH (20:39)
[2020-05-27] MEDS: VRAYLAR 3 MG ORAL SCH (20:40)
--- NOTE | 2020-05-28 06:35 | NUR ---
NURSE NOTES: Pt is awake and watching TV. No distress noted. Pt is going to discharge today after blood withdrawn. Provide discharge packet. 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 Will continue to follow up.
--- NOTE | 2020-05-28 06:43 | NUR ---
NURSE HAND-OFF: Important Events on Shift: discharge planning Patient Status: [stable] Diet: [regular] Pending Orders: [] Pending Results/Labs:[] Pending MD notification:[] Latest Vital Signs: Temperature 97.7 , Pulse 74 , B/P 115 /74 , Respiratory Rate 18 , O2 SAT 97 , Room Air, O2 Flow Rate . Vital Sign Comment: [] Latest Toro Fall Score: 15 Fall Risk: Low Risk Safety Measures: Call light Within Reach, Bed Alarm Zone 1, Side Rails Side Rails x2, Bed position Low and Locked. Fall Precautions: Patient Fall Education
--- NOTE | 2020-05-28 07:42 | NUR ---
NURSE NOTES: Pt left the facility after breakfast with his belongings and home medication via [facility] to home.
--- NOTE | 2020-05-28 08:15 | Discharge Summary ---
DATE OF ADMISSION: 05/25/2020 DATE OF DISCHARGE: 05/28/2020 DISCHARGE DIAGNOSES: 1. Participation in [employer] clinical trial [id number]. 2. HIV infection, well controlled on anti-retroviral therapy. 3. History of depression and anxiety. 4. Diverticulosis. 5. Colon polyps. 6. Hyperlipidemia. 7. Benign prostatic hypertrophy. HISTORY OF PRESENT ILLNESS AND HOSPITAL COURSE: Patient is a 64-year-old man who was admitted for continued participation in the above clinical trial. He received the fourth of a projected 5 cycles of investigational product on the second hospital day. There were no adverse events noted. The patient feels well at this time. Discharge will be to home in good condition. He will be followed up in the office next week. MEDICATIONS AT DISCHARGE: Include Ativan 1 mg in the morning and 2 mg in the evening, Vraylar 3 mg daily, Triumeq 1 tablet daily, Pristiq 100 mg daily, dutasteride/tamsulosin 0.5/0.4 mg capsules once a day, iron sulfate 325 mg twice a day, Myrbetriq 50 mg once a day, and aripiprazole as needed for anxiety. Kj Zaidi M.D. DR: ENEIDA JOB#: [id number] CC: Kj Zaidi M.D.; [address] [place] [address], [address]; [place] [address]; Fax#: [phone]
[2020-05-28 08:36] LABS: BASOPHILS % (AUTO) 0.9 % (0.0-2.0); EOSINOPHILS % (AUTO) 2.4 % (0.0-3.0); HEMATOCRIT 35.8 % (42.0-52.0); HEMOGLOBIN 12.8 G/DL (14.2-18.0); LYMPHOCYTES % (AUTO) 31.4 % (20.0-45.0); MEAN CORPUSCULAR VOLUME 98 FL (80-99); MONOCYTES % (AUTO) 10.6 % (1.0-10.0); NEUTROPHILS % (AUTO) 54.7 % (45.0-75.0); PLATELET COUNT 173 K/UL (150-450); RED BLOOD COUNT 3.68 M/UL (4.70-6.10); RED CELL DISTRIBUTION WIDTH 12.2 % (11.6-14.8); WHITE BLOOD COUNT 5.9 K/UL (4.8-10.8)
== END 2020-05-28 07:42 | disposition home or self-care (01) | DRG 951 ==
LOC: 3E 13:16
DX: Z00.6 Encounter for examination for normal comparison and control in clinical research program (principal); B20 Human immunodeficiency virus [HIV] disease; F41.8 Other specified anxiety disorders; Z88.8 Allergy status to other drugs, medicaments and biological substances; K57.90 Diverticulosis of intestine, part unspecified, without perforation or abscess without bleeding; E78.5 Hyperlipidemia, unspecified; N40.0 Benign prostatic hyperplasia without lower urinary tract symptoms; K63.5 Polyp of colon
CPT/HCPCS: 36415; 85025